=== PATIENT | female | born 1950 | race Caucasian/White ===

== ENCOUNTER 2018-01-24 12:19 | Emergency (ER) | payer OTHER, MEDICARE ==
--- NOTE | 2018-01-24 13:23 | CPEKG ---
Heart Rate: 61 RR Interval: 984 P-R Interval: 172 QRSD Interval: 94 QT Interval: 432 QTC Interval: 435 P [place]: 78 QRS [place]: 61 T Wave [place]: 2 EKG Severity - ABNORMAL ECG - EKG Impression: SINUS RHYTHM EKG Impression: CONSIDER LEFT VENTRICULAR HYPERTROPHY Electronically Signed By: Mert Teran 24-Jan-2018 15:56:36
--- NOTE | 2018-01-24 14:11 | EDPHY ---
H & P Time Seen by Provider: 01/24/18 13:37 HPI/ROS: Chief complaint. Left chest pain HPI. 67-year-old female visiting from [place] has been having left chest pain intermittently for several months. However today with plane flight [place] getting ready for the trip it was worse today. Same pain same location just more intense and more constant. Her discomfort is worse with movement, palpation as well as deep breathing. No fever or cough. No abdominal pain or nausea vomiting. No leg swelling or pain ROS Constitutional. no fever/chills, no weakness Eyes. no problems with vision ENT. no sore throat, no nasal drainage Cardiovascular. Left chest pain Respiratory. no shortness of breath, no cough Abdominal. no abdominal pain, no nausea/vomiting, no diarrhea . no problems urinating MS. no calf pain/swelling, no neck/back pain, no joint pain Skin. no rash Lymph. no swollen glands Neuro. no headache, no dizziness, no difficulty walking or with speech Past Medical/Surgical History: Dyslipidemia, hypertension Recent screening for abdominal aortic aneurysm which was negative Social History: Single, nonsmoker, no alcohol Smoking Status: Never smoked Physical Exam: General Appearance: Alert well-developed female mild distress vital signs are stable Eyes: Pupils equal and round no pallor or injection. ENT, Mouth: Mucous membranes are moist. Respiratory: There are no retractions, lungs are clear to auscultation. Cardiovascular: Regular rate and rhythm. Gastrointestinal: Abdomen is soft and nontender, no masses, bowel sounds normal. Neurological: Awake and alert, sensory and motor exams grossly normal. Skin: Warm and dry, no rashes. Musculoskeletal: Neck is supple nontender. Extremities symmetrical, full range of motion. Psychiatric: Patient is oriented X 3, there is no agitation. Constitutional: Initial Vital Signs Temperature (C) 37.2 C 01/24/18 12:32 Heart Rate 73 01/24/18 12:32 Respiratory Rate 16 01/24/18 12:32 Blood Pressure 132/91 H 01/24/18 12:32 O2 Sat (%) 95 01/24/18 12:32 O2 Delivery Mode Room Air Allergies/Adverse Reactions: No Known Allergies Allergy (Unverified 01/24/18 12:31) Home Medications: Medication Instructions Recorded Amlodipine Besylate 01/24/18 Crestor 01/24/18 Zetia 01/24/18 Medical Decision Making - Diagnostics EKG Interpretation: EKG interpreted by me shows normal sinus rhythm normal interval and axis. QRS is normal there is no significant ST elevation or depression. No arrhythmia. The rate is 61 Imaging Results: Imaging Impressions Chest X-Ray 01/24/18 12:56 Impression: Normal chest. Chest x-ray reviewed by me shows no fracture, pneumothorax, pneumonia Procedures: IV normal saline, monitor ED Course/Re-evaluation: On re-evaluation patient is stable. She and I discussed imaging, EKG, lab results. We discussed treatment plan including criteria for return and importance of follow-up and further evaluation. She expresses understanding and agreement Differential Diagnosis: 1-2 months of left chest discomfort this been intermittent and now more continuous. However the workup is totally normal. I considered pulmonary embolus, acute coronary syndrome, musculoskeletal etiology. Pain is worse with movement I really do not think that this is gastritis or pancreatitis - Data Points Laboratory Results: Laboratory Results 01/24/18 14:20 01/24/18 14:20 01/24/18 01/24/18 01/24/18 14:20 14:20 14:20 WBC 5.13 10^3/uL 10^3/uL (3.80-9.50) RBC 4.26 10^6/uL 10^6/uL (4.18-5.33) Hgb 13.1 g/dL g/dL (12.6-16.3) Hct 40.0 % % (38.0-47.0) MCV 93.9 fL fL (81.5-99.8) MCH 30.8 pg pg (27.9-34.1) MCHC 32.8 g/dL g/dL (32.4-36.7) RDW 12.6 % % (11.5-15.2) Plt Count 218 10^3/uL 10^3/uL (150-400) MPV 9.8 fL fL (8.7-11.7) Neut % (Auto) 41.1 % % (39.3-74.2) Lymph % (Auto) 50.5 % H % (15.0-45.0) [place] % (Auto) 7.0 % % (4.5-13.0) Eos % (Auto) 0.8 % % (0.6-7.6) Baso % (Auto) 0.6 % % (0.3-1.7) Nucleat RBC Rel Count 0.0 % % (0.0-0.2) Absolute Neuts (auto) 2.11 10^3/uL 10^3/uL (1.70-6.50) Absolute Lymphs (auto) 2.59 10^3/uL 10^3/uL (1.00-3.00) Absolute Monos (auto) 0.36 10^3/uL 10^3/uL (0.30-0.80) Absolute Eos (auto) 0.04 10^3/uL 10^3/uL (0.03-0.40) Absolute Basos (auto) 0.03 10^3/uL 10^3/uL (0.02-0.10) Absolute Nucleated RBC 0.00 10^3/uL 10^3/uL (0-0.01) Immature Gran % 0.0 % % (0.0-1.1) Immature Gran # 0.00 10^3/uL 10^3/uL (0.00-0.10) D-Dimer < 0.27 ug/mLFEU ug/mLFEU (0.00-0.50) Sodium 144 mEq/L mEq/L (135-145) Potassium 4.2 mEq/L mEq/L (3.3-5.0) Chloride 104 mEq/L mEq/L (97-110) Carbon Dioxide 27 mEq/l mEq/l (22-31) Anion Gap 13 mEq/L mEq/L (8-16) BUN 20 mg/dL mg/dL (7-23) Creatinine 0.7 mg/dL mg/dL (0.6-1.0) Estimated GFR > 60 Glucose 82 mg/dL mg/dL (70-100) Calcium 9.3 mg/dL mg/dL (8.5-10.4) Troponin I < 0.012 ng/mL ng/mL (0.000-0.034) Departure - Departure Disposition: Home, Routine, Self-Care Clinical Impression: Chest wall pain Condition: Good Instructions: Chest Pain (ED) Additional Instructions: Heat to sore area. Easy activity. Ibuprofen 4-600 mg every 6 hr for discomfort. May consider [id number] Pepcid or Zantac for your stomach. Return for worsening symptoms. Recheck upon return home to [place] Referrals: NONE *PRIMARY CARE P,. [Primary Care Provider] - As per Instructions
[2018-01-24 14:32] LABS: PLATELET COUNT 218 10^3/uL (150-400)
[2018-01-24 15:17] VITALS: BP 142/81
== END 2018-01-24 15:34 | disposition home or self-care (01) ==
DX: R07.89 Other chest pain (principal); I10 Essential (primary) hypertension